=== PATIENT | male | born 1975 | race Caucasian/White ===

== ENCOUNTER 2020-11-30 23:46 | Inpatient (IN) | payer SELFPAY ==
[~2020-11-30] VITALS: Ht 175.3 cm; Wt 107.5 kg
[2020-12-01 01:28] LABS: BASOPHILS % 0.2 % (0.0-2.0); EOSINOPHILS % 0.2 % (0.0-5.0); HEMATOCRIT. 32.4 % (42.0-52.0); HEMOGLOBIN. 11.2 g/dL (14.0-18.0); LYMPHOCYTES % 15.1 % (20.0-50.0); MEAN CORPUSCULAR HEMOGLOBIN 30.5 pg (28.0-32.0); MEAN CORPUSCULAR VOLUME 88.4 fL (80.0-94.0); MEAN PLATELET VOLUME 7.6 fl (7.4-10.4); MONOCYTES % 6.9 % (2.0-8.0); NEUTROPHILS % 77.6 % (40.0-76.0); PLATELET 347 x1000/uL (130-400); RED BLOOD CELL COUNT 3.67 mill/uL (4.7-6.1); RED CELL DISTRIBUTION WIDTH 15.1 % (11.6-14.6)
[2020-12-01 01:30] LABS: CHLORIDE 104 mEq/L (98-107)
[2020-12-01 01:36] LABS: ETHANOL BLOOD < 10 mg/dL
[2020-12-01] MEDS ORDERED: ASPIRIN 325MG EC TABLET PO NR (02:45)
[2020-12-01] MEDS ORDERED: AZITHROMYCIN 500 MG in DEXT 5% WATER 250 ML IV NR (02:45)
[2020-12-01] MEDS ORDERED: CEFTRIAXONE 1 G PREMIX 50 ML IV NR (03:30)
[2020-12-01] MEDS ORDERED: ALBUTEROL 6.7GM HFA INHALER ORI PRN (08:45)
[2020-12-01] MEDS ORDERED: MAGNESIUM/ALUMINUM HYDROXIDE/SIMETHICONE 30ML UDC PO PRN (08:45)
[2020-12-01] MEDS ORDERED: DIPHENHYDRAMINE 50MG/ML VIAL IV PRN (08:45)
[2020-12-01] MEDS ORDERED: ENOXAPARIN 40MG/0.4ML SYR SUBCUT SCH (08:45)
[2020-12-01] MEDS ORDERED: ACETAMINOPHEN 325MG TABLET PO PRN (08:45)
[2020-12-01] MEDS ORDERED: LORAZEPAM 2MG/ML CPJ IV PRN (08:45)
[2020-12-01] MEDS ORDERED: GUAIFENESIN 200MG/10ML SUGAR FREE UDC PO PRN (08:45)
[2020-12-01] MEDS ORDERED: CLONIDINE 0.1MG TABLET PO PRN (08:45)
[2020-12-01] MEDS ORDERED: DOCUSATE SODIUM 100MG CAPSULE PO PRN (08:45)
[2020-12-01] MEDS ORDERED: ONDANSETRON HCL 4MG/2ML INJ IV PRN (08:45)
[2020-12-01] MEDS ORDERED: HYDROCODONE/ACETAMINOPHEN 5/325MG TABLET PO PRN (08:45)
[2020-12-01] MEDS ORDERED: MORPHINE SULFATE 2 MG/ML CPJ (NOT FOR IM USE) IV PRN (08:45)
[2020-12-01] MEDS ORDERED: CEFTRIAXONE 1 G PREMIX 50 ML IV SCH (09:00)
[2020-12-01 09:24] VITALS: BP 128/69
[2020-12-01] MEDS: ENOXAPARIN 30MG/0.3ML SYR SUBCUT SCH ×2 (10:30→21:49)
[2020-12-01] MEDS ORDERED: POTASSIUM CHLORIDE 20MEQ TABLET SR PO NR (11:15)
[2020-12-01] MEDS ORDERED: DEXTROSE 50% WATER 50ML SYRINGE IV PRN (11:45)
[2020-12-01] MEDS ORDERED: AMOX1TAB16 MT (11:56)
[2020-12-01] MEDS ORDERED: FAMO20TA8 MT (11:57)
[2020-12-01] MEDS ORDERED: P20 MT (11:59)
[2020-12-01 12:00] VITALS: BP 134/73
[2020-12-01] MEDS ORDERED: VALACYCLOVIR HCL MT SCH (12:00)
[2020-12-01] MEDS ORDERED: VALA100044 MT (12:00)
[2020-12-01] MEDS: FAMOTIDINE 20MG TABLET PO SCH ×2 (13:21→17:56)
[2020-12-01] MEDS: PREDNISONE 20MG TABLET PO SCH (13:21)
[2020-12-01] MEDS: AMOXICILLIN/POTASSIUM CLAVULANATE 875/125MG TAB PO SCH ×2 (13:22→21:49)
[2020-12-01] MEDS: NICOTINE 14MG PATCH TD SCH (13:22)
[2020-12-01] MEDS: SODIUM CHLORIDE 0.9% INJ 3ML FLUSH IVF SCH ×2 (13:31→21:50)
[2020-12-01] MEDS: INSULIN LISPRO 100 UNITS/ML SUBCUT SCH ×3 (13:31→21:51)
[2020-12-01] MEDS: BLOOD SUGAR DIAGNOSTIC STRIP TEST SCH ×3 (13:31→21:49)
[2020-12-01] MEDS: VALACYCLOVIR HCL 500MG TABLET PO SCH ×2 (14:40→17:56)
[2020-12-01 16:00] VITALS: BP 131/86
[2020-12-01 20:00] VITALS: BP 138/76
[2020-12-02] VITALS: BP 143/71
[2020-12-02] MEDS ORDERED: ALBUTEROL (0.083%) 2.5MG/3ML NEB HHN PRN (02:15)
[2020-12-02 04:00] VITALS: BP 150/96
[2020-12-02] MEDS: SODIUM CHLORIDE 0.9% INJ 3ML FLUSH IVF SCH ×2 (05:30→13:44)
[2020-12-02] MEDS: BLOOD SUGAR DIAGNOSTIC STRIP TEST SCH ×2 (06:14→12:18)
[2020-12-02] MEDS: PREDNISONE 20MG TABLET PO SCH (06:14)
[2020-12-02] MEDS: INSULIN LISPRO 100 UNITS/ML SUBCUT SCH ×2 (06:15→12:27)
[2020-12-02 07:20] LABS: HEMATOCRIT. 28.9 % (42.0-52.0); HEMOGLOBIN. 10.1 g/dL (14.0-18.0); MEAN CORPUSCULAR HEMOGLOBIN 31.3 pg (28.0-32.0); MEAN CORPUSCULAR VOLUME 89.6 fL (80.0-94.0); MEAN PLATELET VOLUME 7.6 fl (7.4-10.4); PLATELET 299 x1000/uL (130-400); RED BLOOD CELL COUNT 3.23 mill/uL (4.7-6.1); RED CELL DISTRIBUTION WIDTH 15.1 % (11.6-14.6)
[2020-12-02 07:24] LABS: CHLORIDE 105 mEq/L (98-107)
[2020-12-02 08:00] VITALS: BP 166/97
[2020-12-02] MEDS: AMOXICILLIN/POTASSIUM CLAVULANATE 875/125MG TAB PO SCH (08:36)
[2020-12-02] MEDS: ENOXAPARIN 30MG/0.3ML SYR SUBCUT SCH (08:36)
[2020-12-02] MEDS: VALACYCLOVIR HCL 500MG TABLET PO SCH ×2 (08:36→12:28)
[2020-12-02] MEDS: NICOTINE 14MG PATCH TD SCH (08:37)
[2020-12-02] MEDS: FAMOTIDINE 20MG TABLET PO SCH (08:37)
[2020-12-02] MEDS ORDERED: CEFTRIAXONE 1,000 MG in DEXTROSE 5% WATER 50 ML IV SCH (09:00)
[2020-12-02] MEDS ORDERED: ASPIRIN 81MG TABLET PO SCH (09:00)
[2020-12-02] MEDS ORDERED: AZITHROMYCIN 500 MG in DEXT 5% WATER 250 ML IV SCH (09:00)
[2020-12-02 12:00] VITALS: BP 160/90
[2020-12-02 13:03] VITALS: BP 160/90
[2020-12-02 19:56] LABS: PLATELET ESTIMATE NORMAL
== END 2020-12-02 13:55 | disposition home or self-care (01) | DRG 139 ==
LOC: ER 23:46 → 7WST 12-01 04:29 → ENRESERV 12-01 08:09 → 7WST 12-01 10:39 → 7EST 12-02 01:33
PROVIDERS: ADMIT Internal Medicine; ATTEND Internal Medicine
DX: J18.9 Pneumonia, unspecified organism (principal); J96.01 Acute respiratory failure with hypoxia; N17.0 Acute kidney failure with tubular necrosis; D64.9 Anemia, unspecified; E03.9 Hypothyroidism, unspecified; E66.9 Obesity, unspecified; E87.6 Hypokalemia; F17.210 Nicotine dependence, cigarettes, uncomplicated; R73.9 Hyperglycemia, unspecified; G90.8 Other disorders of autonomic nervous system; I10 Essential (primary) hypertension; E05.90 Thyrotoxicosis, unspecified without thyrotoxic crisis or storm; R65.10 Systemic inflammatory response syndrome (SIRS) of non-infectious origin without acute organ dysfunction; T38.0X5A Adverse effect of glucocorticoids and synthetic analogues, initial encounter; Z20.822 Contact with and (suspected) exposure to COVID-19; Z82.49 Family history of ischemic heart disease and other diseases of the circulatory system; Z68.35 Body mass index [BMI] 35.0-35.9, adult; Y92.89 Other specified places as the place of occurrence of the external cause
CPT/HCPCS: 36415; 71045; 80053; 80320; 82962; 83036; 83605; 83880; 84145; 84484; 85025; 85379; 87804; 93005; 99291; J0456; J0696; J1650; J1815; J7040; J7060; J7070; J7512; U0003; U0005; G0480